=== PATIENT | female | born 1960 | race Caucasian/White ===

== ENCOUNTER 2017-08-12 10:58 | Emergency (ER) | payer MEDICARE, MEDICAID ==
[2017-08-12] MEDS ORDERED: IPRATROPIUM/ALBUTEROL (0.5MG/3MG) NEB INH ONE (11:25)
--- NOTE | 2017-08-12 11:30 | Emergency Department Record ---
History of Present Illness - General Chief Complaint: Cough Stated Complaint: COLD FOR OVER A WEEK Time Seen by Provider: 08/12/17 11:21 Source: Patient Mode of Arrival: EMS Limitations: No limitations - History of Present Illness Initial Comments: The patient is here due to a cough and congestion for just over a week. She denies any SOB or CLAUDIA but has had a mild hoarse voice. There also has been no reported fever, chills, vomiting or diarrhea but she has had an issue with her chronic pain. MD Complaint: Cough, Nasal congestion, Rhinorrhea Onset/Timin -: Week(s) Severity: Moderate Severity scale (1-10): 7 Consistency: Constant Associated Symptoms: Hoarseness - Related Data Home Medications Medication Instructions Recorded Confirmed Last Taken Pravastatin Sodium [Pravachol] 80 mg PO DAILY 08/12/17 08/12/17 Unknown Previous Rx's Medication Instructions Recorded Hydrocodone/Acetaminophen [Randall 1 tab PO BID PRN #56 tab 05/09/15 7.5mg/325mg] Albuterol Sulfate [Proair Hfa] 2 puff IH QID PRN #1 inhaler 08/12/17 Azithromycin [Zithromax] 250 mg PO DAILY #4 tab 08/12/17 Benzonatate [Tessalon] 1 cap PO Q8H PRN #15 cap 08/12/17 Allergies Allergy/AdvReac Type Severity Reaction Status Date / Time No Known Drug Allergies Allergy Verified 05/17/15 18:14 Travel Screening - Travel/Exposure Within Last 30 Days Have you traveled within the last 30 days?: No Review of Systems Constitutional: Reports: Malaise. Denies: Chills, Fever Eyes: Denies: Eye discharge ENT: Reports: Congestion Respiratory: Reports: Cough. Denies: Dyspnea, Hemoptysis Cardiovascular: Denies: Arrhythmia, Chest pain Past Medical History - SOCIAL HISTORY Smoking Status: Never smoker Alcohol Use: None Drug Use: None - RESPIRATORY Hx Respiratory Disorders: No - CARDIOVASCULAR Hx Cardio Disorders: No - NEURO Hx Neuro Disorders: Yes Hx Seizures: Yes (as a child) - GI Hx GI Disorders: No - Hx Genitourinary Disorders: No Comment:: inc of urine at times - ENDOCRINE Hx Endocrine Disorders: Yes Hx Diabetes: Yes (states she doesn't think she is) Hx Thyroid Disease: Yes Comment:: states she isn't sure but is on medication for both - MUSCULOSKELETAL Hx Musculoskeletal Disorders: Yes Hx Arthritis: Yes - PSYCH Hx Psych Problems: No - HEMATOLOGY/ONCOLOGY Hx Hematology/Oncology Disorders: Yes Hx Blood Transfusions: Yes Hx Blood Transfusion Reaction: No Family Medical History Any Significant Family History?: Yes Hx Heart Disease: Father, Mother Physical Exam - General General Appearance: Alert, Oriented x3, Cooperative, No acute distress - Head Head exam: Atraumatic, Normocephalic, Normal inspection - Eye Eye exam: Normal appearance, PERRL - Neck Neck exam: Normal inspection, Full ROM. negative: Tenderness - Respiratory Respiratory exam: Normal lung sounds bilaterally. negative: Accessory muscle use, Rales, Respiratory distress, Rhonchi, Stridor, Wheezes - Cardiovascular Cardiovascular Exam: Regular rate, Normal rhythm, Normal heart sounds - GI/Abdominal GI/Abdominal exam: Soft, Normal bowel sounds. negative: Tenderness - Extremities Extremities exam: Normal capillary refill. negative: Joint swelling, Pedal edema, Tenderness - Neurological Neurological exam: Alert, Oriented X3. negative: Altered, Motor sensory deficit Course Vital Signs 08/12/17 11:13 Temperature 97.7 F Pulse Rate 86 Respiratory 16 Rate Blood Pressure 153/94 Pulse Ox 98 - Reevaluation(s) Reevaluation #1: The patient is doing better. She is coughing less since the breathing treatment. I did explain to her that the lab tests are WNL's. She is to continue the oral Abx at home along with the breathing tx and is to see her PCP later this week if not better. 08/12/17 12:32 Medical Decision Making - Data Complexity MDM Data: Labs Ordered and/or Reviewed, X-Ray Ordered and/or Reviewed - Lab Data Result diagrams: 08/12/17 11:35 08/12/17 11:35 - Radiology Data Radiology results: Report reviewed (CXR: Neg.) Disposition Disposition: Discharge Clinical Impression: Upper respiratory infection Qualifiers: URI type: unspecified URI Qualified Code(s): J06.9 - Acute upper respiratory infection, unspecified Disposition: Home, Self-Care Condition: (1) Good Instructions: Upper Respiratory Infection (ED) Additional Instructions: Please continue the Zithromax and use the inhaller and Tessalon as directed. Please see your PCP for recheck in 2-3 days if not better. Return to the ER for any worsening cough, fever, chills, or trouble breathing. Prescriptions: Albuterol Sulfate [Proair Hfa] 2 puff IH QID PRN #1 inhaler PRN Reason: Cough And Difficulty Breathing Azithromycin [Zithromax] 250 mg PO DAILY #4 tab Benzonatate [Tessalon] 1 cap PO Q8H PRN #15 cap PRN Reason: Cough Forms: Patient Portal Access Time of Disposition: 12:35 Quality - Quality Measures Quality Measures: N/A - Blood Pressure Screening View Details: Yes Does Patient Have Any of the Following: No Blood Pressure Classification: Pre-Hypertensive BP Reading Systolic Measurement: 150 Diastolic Measurement: 83 Screening for High Blood Pressure: < Pre-Hypertensive BP, F/U Documented > [ G8950] Pre-Hypertensive Follow-up Interventions: Referral to alternative/primary care provider.
[2017-08-12 11:40] LABS: BASO % 0.4 % (0-6); EOS % 8.6 % (0-6); GRAN % 46.1 % (47-80); HEMOGLOBIN 14.5 gm/dl (11.6-16.0); LYMPH % 35.2 % (16-45); MEAN CELL VOLUME 89.6 fl (81-97); MEAN CORPUSCULAR HEMOGLOBIN 29.5 pg (27-33); MEAN PLATELET VOLUME 8.9 fl (7.4-10.4); MONO % 9.7 % (0-9); PLATELET COUNT 194 K/uL (130-400); RED BLOOD COUNT 4.91 M/uL (3.80-5.40); RED CELL DISTRIBUTION WIDTH 13.2 % (11.5-14.5); WHITE BLOOD COUNT W/O DIFF 4.8 K/uL (4.2-12.2)
[2017-08-12 12:02] LABS: ALB/GLOB RATIO 1.3 (1.1-1.8); ALBUMIN 3.6 g/dL (4.0-5.0); ALKALINE PHOSPHATASE 63 U/L (35-104); ALT/SGPT 19 U/L (<33); AST/SGOT 24 U/L (10.0-35.0); BLOOD UREA NITROGEN 9 mg/dL (6-20); C-REACTIVE PROTEIN 0.7 mg/L (<5.0); CREATININE 0.7 mg/dL (0.5-0.9); EST GLOMERULAR FILTRATION RATE > 60 mL/min; GLUCOSE,RANDOM 125 mg/dL (74-109); TOTAL PROTEIN 6.4 g/dL (6.6-8.7)
[2017-08-12] MEDS ORDERED: AZITHROMYCIN 500 MG TABLET PO ONE (12:30)
--- NOTE | 2017-08-14 10:27 | RADIOLOGY REPORT ---
EXAM: CHEST, TWO VIEWS HISTORY: COUGH, WEAKNESS. TECHNIQUE: AP and lateral views of the chest were obtained. Comparison: Two view chest dated 01/07/13. FINDINGS: Mild cardiomegaly. No definite acute infiltrate seen. This study is somewhat limited by large body habitus. No definite pleural effusion or pneumothorax evident. Surgical clips in the right supraclavicular region, also present previously. IMPRESSION: 1. MILD CARDIOMEGALY. 2. NO ACUTE INFILTRATE EVIDENT. 3. SURGICAL CLIPS RIGHT SUPRACLAVICULAR REGION. JOB NUMBER: [id number] [facility]
== END 2017-08-12 14:08 | disposition home or self-care (01) ==
LOC: ER 10:58
DX: J06.9 Acute upper respiratory infection, unspecified (principal); R05 Cough; R49.0 Dysphonia; R53.1 Weakness; E11.9 Type 2 diabetes mellitus without complications
CPT/HCPCS: 71020; 80053; 85025; 86140; 99283

== ENCOUNTER 2018-04-24 18:09 | Emergency (ER) | payer MEDICARE, MEDICAID ==
--- NOTE | 2018-04-24 18:45 | Emergency Department Record ---
History of Present Illness - General Chief Complaint: Choking Stated Complaint: CHOKING/FOOD Time Seen by Provider: 04/24/18 18:39 Source: Patient Mode of Arrival: EMS Limitations: No limitations - History of Present Illness Initial Comments: The patient is here due to getting food stuck in her esophagus. She was eating a pork chop and got a piece stuck in her esophagus. She then started coughing and vomiting and now feels like it is in the mid chest. She has had no voice changes or trouble with her speech. The patient does have a hx of an esophageal stricture and did need it dilated many years ago. She states for the last few months she has felt food getting stuck minimally. Onset/Timin -: Hour(s) - Related Data Home Medications Medication Instructions Recorded Confirmed Last Taken Furosemide [Lasix] 20 mg PO DAILY 04/24/18 04/24/18 04/24/18 Hydrocodone/Acetaminophen [Comfort 1 tab PO Q8H PRN 04/24/18 04/24/18 04/24/18 10mg/325mg] Allergies Allergy/AdvReac Type Severity Reaction Status Date / Time No Known Drug Allergies Allergy Verified 04/24/18 18:13 Travel Screening - Travel/Exposure Within Last 30 Days Have you traveled within the last 30 days?: No - Travel/Exposure Within Last Year Have you traveled outside the [place] in the last year?: No - Additonal Travel Details Have you been exposed to anyone with a communicable illness?: No Review of Systems Constitutional: Denies: Chills, Fever Past Medical History - SOCIAL HISTORY Smoking Status: Never smoker Alcohol Use: None Drug Use: None - RESPIRATORY Hx Respiratory Disorders: No - CARDIOVASCULAR Hx Cardio Disorders: No - NEURO Hx Neuro Disorders: Yes Hx Seizures: Yes (as a child) - GI Hx GI Disorders: No - Hx Genitourinary Disorders: No Comment:: inc of urine at times - ENDOCRINE Hx Endocrine Disorders: Yes Hx Diabetes: Yes (states she doesn't think she is) Hx Thyroid Disease: Yes Comment:: states she isn't sure but is on medication for both - MUSCULOSKELETAL Hx Musculoskeletal Disorders: Yes Hx Arthritis: Yes - PSYCH Hx Psych Problems: No - HEMATOLOGY/ONCOLOGY Hx Hematology/Oncology Disorders: Yes Hx Blood Transfusions: Yes Hx Blood Transfusion Reaction: No Family Medical History Any Significant Family History?: Yes Hx Heart Disease: Father, Mother Physical Exam - General General Appearance: Alert, Oriented x3, Cooperative, No acute distress - Head Head exam: Atraumatic, Normocephalic, Normal inspection - Eye Eye exam: Normal appearance, PERRL - ENT Throat exam: Normal inspection. negative: Tonsillar erythema, Tonsillar exudate - Neck Neck exam: Normal inspection, Full ROM. negative: Tenderness - Respiratory Respiratory exam: Normal lung sounds bilaterally. negative: Respiratory distress - Cardiovascular Cardiovascular Exam: Regular rate, Normal rhythm, Normal heart sounds - GI/Abdominal GI/Abdominal exam: Soft, Normal bowel sounds. negative: Tenderness - Extremities Extremities exam: Normal inspection, Full ROM, Normal capillary refill. negative: Tenderness Course Vital Signs 04/24/18 18:26 Pulse Rate [ 87 Pulse Ox Probe] Respiratory 17 Rate Blood Pressure 156/72 [Left Arm] Pulse Ox 98 - Reevaluation(s) Reevaluation #1: The patient is doing OK at this time. She continues to vomit intermittently but is having no SOB or CLAUDIA. I did explain to her that she will need and EGD but due to the fact we have no GI she will need to go to a larger hospital. She chose [facility] so I did discuss the case with Dr. Pickering in the ER and she does accept the patient in an ER to ER transfer. 04/24/18 19:49 Medical Decision Making - Data Complexity MDM Data: Labs Ordered and/or Reviewed, X-Ray Ordered and/or Reviewed - Lab Data Result diagrams: 04/24/18 19:15 04/24/18 19:15 - Radiology Data Radiology results: Report reviewed (CXR: poor inspiration, O/W neg.) Disposition Disposition: Transfer Clinical Impression: Esophageal foreign body Qualifiers: Encounter type: initial encounter Qualified Code(s): T18.108A - Unspecified foreign body in esophagus causing other injury, initial encounter Disposition: Acute Care Hospital Transfer Transfer To: [facility] Reason For Transfer: GI Accepting Physician: Ladan Time Discussed w/Accepting Physician: 19:52 Condition: (2) Stable Referrals: [facility] [Provider Group] Forms: Patient Portal Access Time of Disposition: 19:53 Quality - Quality Measures Quality Measures: N/A - Blood Pressure Screening View Details: Yes Does Patient Have Any of the Following: No Blood Pressure Classification: Hypertensive Reading Systolic Measurement: 175 Diastolic Measurement: 102 Screening for High Blood Pressure: < First Hypertensive BP, F/U Documented > [ G8950] First Hypertensive Follow-up Interventions: Referral to alternative/primary care provider.
[2018-04-24] MEDS ORDERED: ONDANSETRON HCL IV 4 MG/2 ML VIAL IVP ONE (18:49)
[2018-04-24 19:22] LABS: BASO % 0.3 % (0-6); EOS % 6.3 % (0-6); GRAN % 57.3 % (47-80); HEMATOCRIT 47.2 % (35.0-47.0); HEMOGLOBIN 15.8 gm/dl (11.6-16.0); LYMPH % 26.2 % (16-45); MEAN CELL VOLUME 91.5 fl (81-97); MEAN CORPUSCULAR HEMOGLOBIN 30.6 pg (27-33); MEAN CORPUSCULAR HGB CONC 33.5 g/dl (32-36); MEAN PLATELET VOLUME 9.5 fl (7.4-10.4); MONO % 9.9 % (0-9); PLATELET COUNT 233 K/uL (130-400); RED BLOOD COUNT 5.16 M/uL (3.80-5.40); RED CELL DISTRIBUTION WIDTH 13.6 % (11.5-14.5); WHITE BLOOD COUNT W/O DIFF 6.5 K/uL (4.2-12.2)
[2018-04-24 19:34] LABS: BLOOD UREA NITROGEN 15 mg/dL (8-23); CREATININE 0.8 mg/dL (0.5-0.9); EST GLOMERULAR FILTRATION RATE > 60 mL/min
[2018-04-24 19:37] LABS: GLUCOSE,RANDOM 130 mg/dL (74-109)
--- NOTE | 2018-04-25 22:02 | RADIOLOGY REPORT ---
EXAM: CHEST 2 VIEWS HISTORY: FOREIGN BODY. TECHNIQUE: Frontal and lateral views of the chest were preformed. FINDINGS: Heart size is normal. There is bronchial wall thickening. No infiltrate or pleural effusion. No radiopaque foreign body. IMPRESSION: BRONCHIAL WALL THICKENING. NO INFILTRATE OR PLEURAL EFFUSION. NO RADIOPAQUE FOREIGN BODY. JOB NUMBER: [id number] [facility]
== END 2018-04-24 20:15 | disposition short-term general hospital (02) ==
LOC: ER 18:09
DX: T18.128A Food in esophagus causing other injury, initial encounter (principal); R05 Cough; R11.11 Vomiting without nausea
CPT/HCPCS: 99285 ×2; 96374; 85025; 80048; 71046; J2405

== ENCOUNTER → 2018-05-14 | Day surgery (SDC) | payer MEDICARE, MEDICAID | END | disposition home or self-care (01) | LOC: HOP 13:22 | PROVIDERS: ATTEND Internal Medicine Gastroenterology | DX: Z53.9 Procedure and treatment not carried out, unspecified reason (principal) ==

== ENCOUNTER 2019-02-27 16:32 | Emergency (ER) | payer MEDICARE, MEDICAID ==
[2019-02-27] MEDS ORDERED: CLINDAMYCIN 150 MG CAP PO ONE (16:50)
--- NOTE | 2019-02-27 17:03 | Emergency Department Record ---
History of Present Illness - General Chief complaint: Bite Insect/other Stated complaint: SPIDER BITES Time Seen by Provider: 02/27/19 16:49 Source: Patient, Family Mode of Arrival: EMS Limitations: No limitations - History of Present Illness Initial comments: The patient is here due to a skin rash off and on for 2-3 months. She has had sores on her skin mainly over her abdomen off and on for months. They seem to be small circular infections and come to a head and then heal with mild scarring. She does have on to the R side of the abdomen that now has opened and is a very superficial wound. She also found a new one last night to the L side of the abdomen. The patient denies any fever, chills, CP, SOB, or CLAUDIA but she has had a mild cough. Additionally the patient howard have some red dry skin to her R lateral arm that is mildly itchy. She denies any new medicines or foods. MD complaint: Rash Onset/Timin -: Month(s) Hx Tetanus Toxoid Vaccination: Yes Year of Tetanus Vaccination: unsure Severity: Moderate Consistency: Constant Improves with: None Worsens with: None Context: Other Associated symptoms: Denies other symptoms Treatments Prior to Arrival: OTC topical medication - Related Data Previous Rx's Medication Instructions Recorded Clindamycin HCl [Cleocin HCl] 300 mg PO QID #28 capsule 02/27/19 Mupirocin [Bactroban] 1 apply TP BID #22 gm 02/27/19 Allergies Allergy/AdvReac Type Severity Reaction Status Date / Time fluconazole AdvReac VOMITING Verified 02/27/19 16:44 Travel Screening - Travel/Exposure Within Last 30 Days Have you traveled within the last 30 days?: No - Travel/Exposure Within Last Year Have you traveled outside the [place] in the last year?: No - Additonal Travel Details Have you been exposed to anyone with a communicable illness?: No - Travel Symptoms Symptom Screening: None Review of Systems Constitutional: Denies: Chills, Fever Eyes: Denies: Eye discharge ENT: Reports: Congestion Respiratory: Reports: Cough. Denies: Dyspnea Cardiovascular: Denies: Arrhythmia, Chest pain Endocrine: Reports: Fatigue Gastrointestinal: Denies: Nausea Genitourinary: Denies: Dysuria Musculoskeletal: Denies: Arthralgia Skin: Reports: Rash. Denies: Bruising Past Medical History - SOCIAL HISTORY Smoking Status: Never smoker Alcohol Use: None Drug Use: None - RESPIRATORY Hx Respiratory Disorders: No Comment:: denies any airway problems - CARDIOVASCULAR Hx Cardio Disorders: Yes Hx Deep Vein Thrombosis: Yes (had blood clot following hip surgery, blood clot to knee) Comment:: has an enlarged heart, no problems - NEURO Hx Neuro Disorders: Yes Hx Dizziness: Yes (occassionally) Hx Neuropathy: Yes (occassionally) Hx Seizures: Yes (as a child x1, no problems since) - GI Hx GI Disorders: Yes Hx Hiatal Hernia: Yes Hx Wt Loss/Wt Gain: Yes (58 lbs in 10 months) Comment:: dyspahgia/stricture, 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 - Hx Genitourinary Disorders: No Comment:: inc of urine at times - ENDOCRINE Hx Endocrine Disorders: Yes Hx Diabetes: Yes (on rx) Hx Thyroid Disease: Yes Comment:: states she isn't sure but is on medication for both - MUSCULOSKELETAL Hx Musculoskeletal Disorders: Yes Hx Arthritis: Yes (hands) Comment:: carpal tunnel bilateral - PSYCH Hx Psych Problems: No - HEMATOLOGY/ONCOLOGY Hx Hematology/Oncology Disorders: Yes Hx Blood Transfusions: No (denies) Family Medical History Any Significant Family History?: Yes Hx Cancer: Brother/Sister *Cancer Comment: sister-"urinary cancer" Hx Diabetes: Mother Hx Heart Disease: Father, Mother Hx HTN: Mother, Brother/Sister *HTN Comment: sister Hx Resp Disorders: Father, Grandparents Physical Exam - General General Appearance: Alert, Oriented x3, Cooperative, No acute distress - Head Head exam: Atraumatic, Normocephalic - Eye Eye exam: Normal appearance, PERRL - ENT Throat exam: Normal inspection. negative: Tonsillar erythema, Tonsillar exudate - Neck Neck exam: Normal inspection, Full ROM. negative: Tenderness - Respiratory Respiratory exam: Normal lung sounds bilaterally. negative: Respiratory distress - Cardiovascular Cardiovascular Exam: Regular rate, Normal rhythm, Normal heart sounds - GI/Abdominal GI/Abdominal exam: Soft, Normal bowel sounds, Other (morbidly obese.). negative : Tenderness - Extremities Extremities exam: Full ROM, Normal capillary refill. negative: Normal inspection (There is mild dry scaley skin to the R lateral arm. It is not warm or tender.), Tenderness - Neurological Neurological exam: Alert. negative: Motor sensory deficit - Skin Skin exam: Rash (There is a 2x2 cm area of erythema to the R lateral anterior abdomen with a 8x8 mm area of superficial purulence in the center. There is no fluctance or abscess.), Other (There is a very indurated 1.5x1.5 cm area of erythema and tenderness to the L anterior lateral abdomen. It appears to be an early skin furuncle. ) Course Vital Signs 02/27/19 16:44 Temperature 98.5 F Pulse Rate 94 H Respiratory 20 Rate Blood Pressure 175/115 Pulse Ox 98 - Reevaluation(s) Reevaluation #1: The patient is doing well at this time. She denies any new problems or issues. I did discus the normal lab work with the patient and the need for F/U next week with her PCP. She is to continue the Clindamycin and may use Mupirocin ointment on the open wounds until healed. 02/27/19 17:34 Medical Decision Making - Data Complexity MDM Data: Labs Ordered and/or Reviewed - Lab Data Result diagrams: 02/27/19 17:04 02/27/19 17:04 Disposition Disposition: Discharge Clinical Impression: Skin infection Disposition: Home, Self-Care Condition: (2) Stable Instructions: Acute Wound Care (ED) Additional Instructions: Please clean the open wounds daily and dress with the antibiotic ointment as directed and continue the Clindamycin. Please see your family doctor this week for recheck. Return to the ER for any worsening symptoms. Prescriptions: Clindamycin HCl [Cleocin HCl] 300 mg PO QID #28 capsule Mupirocin [Bactroban] 1 apply TP BID #22 gm Forms: Patient Portal Access Time of Disposition: 17:37 Quality - Quality Measures Quality Measures: N/A - Blood Pressure Screening View Details: Yes Does Patient Have Any of the Following: No Blood Pressure Classification: Hypertensive Reading Systolic Measurement: 175 Diastolic Measurement: 115 Screening for High Blood Pressure: < First Hypertensive BP, F/U Documented > [ G8950] First Hypertensive Follow-up Interventions: Referral to alternative/primary care provider.
[2019-02-27 17:12] LABS: BASO % 0.3 % (0-6); EOS % 5.8 % (0-6); GRAN % 55.4 % (47-80); HEMATOCRIT 48.5 % (35.0-47.0); HEMOGLOBIN 15.8 gm/dl (11.6-16.0); LYMPH % 28.3 % (16-45); MEAN CELL VOLUME 90.5 fl (81-97); MEAN CORPUSCULAR HEMOGLOBIN 29.5 pg (27-33); MEAN CORPUSCULAR HGB CONC 32.6 g/dl (32-36); MEAN PLATELET VOLUME 9.2 fl (7.4-10.4); MONO % 10.2 % (0-9); PLATELET COUNT 234 K/uL (130-400); RED BLOOD COUNT 5.36 M/uL (3.80-5.40); RED CELL DISTRIBUTION WIDTH 13.5 % (11.5-14.5); WHITE BLOOD COUNT W/O DIFF 5.9 K/uL (4.2-12.2)
[2019-02-27 17:25] LABS: BLOOD UREA NITROGEN 12 mg/dL (8-23); CREATININE 0.7 mg/dL (0.5-0.9); EST GLOMERULAR FILTRATION RATE > 60 mL/min
[2019-02-27 17:28] LABS: GLUCOSE,RANDOM 112 mg/dL (74-109)
== END 2019-02-27 18:13 | disposition home or self-care (01) ==
LOC: ER 16:32
DX: L02.221 Furuncle of abdominal wall (principal); R05 Cough; E11.9 Type 2 diabetes mellitus without complications; Z79.84 Long term (current) use of oral hypoglycemic drugs
CPT/HCPCS: 80048; 85025; 99283

== ENCOUNTER 2019-03-06 23:07 | Emergency (ER) | payer MEDICARE, MEDICAID ==
--- NOTE | 2019-03-06 23:56 | Emergency Department Record ---
History of Present Illness - General Chief complaint: Abscess Stated complaint: SORES ON HER LEGS Time Seen by Provider: 03/06/19 23:09 Source: Patient, Family Mode of Arrival: EMS Limitations: No limitations - History of Present Illness Initial comments: The patient is here due to a hx of skin rashes and bed sores. 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 She also is morbidly obese and non ambulatory and either lays in a bed or sits in a wheelchair. The patient was here a week ago due to superficial skin wounds to her abdomen and a R arm pruritic rash. She was prescribed topical mupirocin ointment for the superficial wounds along with oral Clindamycin. Now most of the wounds are improving and her R arm rash is almost gone. She does have a new itchy rash to the anterior R lower leg. There is no hx of fever, chills, CP, SOB, or vomiting. MD complaint: Rash Onset/Timin -: Week(s) Hx Tetanus Toxoid Vaccination: Yes Year of Tetanus Vaccination: unsure Associated symptoms: Malaise, Nausea Treatments Prior to Arrival: OTC topical medication - Related Data Previous Rx's Medication Instructions Recorded Clindamycin HCl [Cleocin HCl] 300 mg PO QID #28 capsule 02/27/19 Mupirocin [Bactroban] 1 apply TP BID #22 gm 02/27/19 Cephalexin [Keflex] 500 mg PO TID #21 cap 03/07/19 Mupirocin [Bactroban] 1 apply TP TID #1 tube 03/07/19 Triamcinolone Acetonide 80 gm TP BID #1 cream..g. 03/07/19 Allergies Allergy/AdvReac Type Severity Reaction Status Date / Time fluconazole AdvReac VOMITING Verified 03/06/19 23:19 Travel Screening - Travel/Exposure Within Last 30 Days Have you traveled within the last 30 days?: No - Travel/Exposure Within Last Year Have you traveled outside the [place] in the last year?: No - Additonal Travel Details Have you been exposed to anyone with a communicable illness?: No - Travel Symptoms Symptom Screening: None Review of Systems Constitutional: Reports: Malaise. Denies: Chills, Fever Eyes: Denies: Eye discharge ENT: Denies: Congestion Respiratory: Denies: Cough, Dyspnea Past Medical History - SOCIAL HISTORY Smoking Status: Never smoker Alcohol Use: None Drug Use: None - RESPIRATORY Hx Respiratory Disorders: No Comment:: denies any airway problems - CARDIOVASCULAR Hx Cardio Disorders: Yes Hx Deep Vein Thrombosis: Yes (had blood clot following hip surgery, blood clot to knee) Comment:: has an enlarged heart, no problems - NEURO Hx Neuro Disorders: Yes Hx Dizziness: Yes (occassionally) Hx Neuropathy: Yes (occassionally) Hx Seizures: Yes (as a child x1, no problems since) - GI Hx GI Disorders: Yes Hx Hiatal Hernia: Yes Hx Wt Loss/Wt Gain: Yes (58 lbs in 10 months) Comment:: dyspahgia/stricture, 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 - Hx Genitourinary Disorders: No Comment:: inc of urine at times - ENDOCRINE Hx Endocrine Disorders: Yes Hx Diabetes: Yes (on rx) Hx Thyroid Disease: Yes Comment:: states she isn't sure but is on medication for both - MUSCULOSKELETAL Hx Musculoskeletal Disorders: Yes Hx Arthritis: Yes (hands) Comment:: carpal tunnel bilateral - PSYCH Hx Psych Problems: No - HEMATOLOGY/ONCOLOGY Hx Hematology/Oncology Disorders: Yes Hx Blood Transfusions: No (denies) Family Medical History Any Significant Family History?: Yes Hx Cancer: Brother/Sister *Cancer Comment: sister-"urinary cancer" Hx Diabetes: Mother Hx Heart Disease: Father, Mother Hx HTN: Mother, Brother/Sister *HTN Comment: sister Hx Resp Disorders: Father, Grandparents Physical Exam - General General Appearance: Alert, Oriented x3, Cooperative, No acute distress - Head Head exam: Atraumatic, Normocephalic, Normal inspection - Eye Eye exam: Normal appearance, PERRL - Neck Neck exam: Normal inspection, Full ROM. negative: Tenderness - Respiratory Respiratory exam: Normal lung sounds bilaterally. negative: Respiratory distress - Cardiovascular Cardiovascular Exam: Regular rate, Normal rhythm, Normal heart sounds - GI/Abdominal GI/Abdominal exam: Soft, Normal bowel sounds. negative: Rebound, Rigid, Tenderness - Extremities Extremities exam: Normal capillary refill, Tenderness. negative: Normal inspection (There is a papular erythematous moderately pruritic rash to the R anterior lower leg. It does not appear cellulitic but appears to be a type of contact dermatitis.) - Neurological Neurological exam: Alert. negative: Motor sensory deficit Course Vital Signs 03/06/19 03/06/19 23:15 23:29 Temperature 98.2 F 98.2 F Pulse Rate 104 H Pulse Rate [ 105 H Left] Respiratory 16 16 Rate Blood Pressure 133/108 Blood Pressure 133/108 [Left Arm] Pulse Ox 99 99 - Reevaluation(s) Reevaluation #1: I did discuss the need to take Keflex and continue the Mupirocin cream. She is to use Triamcinalone cream on her lower legs and is to see her PCP next week for recheck. 03/07/19 00:58 Reevaluation #2: I also did discuss the patient's bed sores on her buttocks and recommended that she rotate and stay off of her buttocks as much as possible. 03/07/19 01:00 Medical Decision Making - Lab Data Result diagrams: 03/06/19 00:15 03/06/19 00:15 Disposition Disposition: Discharge Clinical Impression: Skin infection Disposition: Home, Self-Care Condition: (2) Stable Instructions: Acute Wounds (ED) Additional Instructions: Please take the Keflex and Mupirocin as directed and use the Steroid cream on your lower legs. Please see your doctor for recheck this week and return to the ER for any worsening symptoms. Prescriptions: Cephalexin [Keflex] 500 mg PO TID #21 cap Mupirocin [Bactroban] 1 apply TP TID #1 tube Triamcinolone Acetonide 80 gm TP BID #1 cream..g. Forms: Patient Portal Access Time of Disposition: 01:05 Quality - Quality Measures Quality Measures: N/A - Blood Pressure Screening View Details: Yes Does Patient Have Any of the Following: Active Dx of HTN Blood Pressure Classification: Hypertensive Reading Systolic Measurement: 133 Diastolic Measurement: 108 Screening for High Blood Pressure: Patient Exclusion, Hx of HTN [G9744]
[2019-03-07 00:17] LABS: BASO % 0.3 % (0-6); EOS % 5.6 % (0-6); GRAN % 52.8 % (47-80); HEMATOCRIT 46.1 % (35.0-47.0); HEMOGLOBIN 15.4 gm/dl (11.6-16.0); LYMPH % 32.3 % (16-45); MEAN CELL VOLUME 88.8 fl (81-97); MEAN CORPUSCULAR HEMOGLOBIN 29.7 pg (27-33); MEAN CORPUSCULAR HGB CONC 33.4 g/dl (32-36); MEAN PLATELET VOLUME 9.5 fl (7.4-10.4); PLATELET COUNT 186 K/uL (130-400); RED BLOOD COUNT 5.19 M/uL (3.80-5.40); RED CELL DISTRIBUTION WIDTH 13.5 % (11.5-14.5); WHITE BLOOD COUNT W/O DIFF 6.2 K/uL (4.2-12.2)
[2019-03-07 00:49] LABS: BLOOD UREA NITROGEN 13 mg/dL (8-23); CREATININE 0.7 mg/dL (0.5-0.9); EST GLOMERULAR FILTRATION RATE > 60 mL/min
[2019-03-07 00:52] LABS: GLUCOSE,RANDOM 133 mg/dL (74-109)
[2019-03-07] MEDS ORDERED: CEPHALEXIN 500 MG CAPSULE PO STA (00:58)
== END 2019-03-07 02:46 | disposition home or self-care (01) ==
LOC: ER 23:07
DX: L25.9 Unspecified contact dermatitis, unspecified cause (principal); L89.329 Pressure ulcer of left buttock, unspecified stage; L89.319 Pressure ulcer of right buttock, unspecified stage; R11.0 Nausea; R53.81 Other malaise; E11.9 Type 2 diabetes mellitus without complications; I10 Essential (primary) hypertension; Z79.84 Long term (current) use of oral hypoglycemic drugs
CPT/HCPCS: 80048; 84145; 85025; 99283

== ENCOUNTER 2019-08-30 10:19 | Emergency (ER) | payer MEDICARE, MEDICAID ==
--- NOTE | 2019-08-30 10:33 | Emergency Department Record ---
History of Present Illness - General Chief Complaint: Fall Injury Stated Complaint: FALL Time Seen by Provider: 08/30/19 10:24 Source: Patient, EMS Mode of Arrival: EMS Limitations: No limitations - History of Present Illness Initial Comments: 59 yo female presents after a fall last night out of her bed. The fall occurred at 10pm. She is wheelchair bound and non ambulatory. Her morning home health aide found her at 9:30am. She does not have any pain. She does not think she injured herself. Her head bumped the hand rail of the bed on the way down but no significant injury. No swelling, pain, headache or tenderness. No neck pain. She is at her baseline without any complaints. EMS was called to her home to help her back in bed. She requested to be checked out. She has home health aides three times a day. She has visiting physicians once a month. She and her brother do have some questions regarding other resources for her home care. She denies any changes in her health. No vomiting, diarrhea, no changes in appetite. No fevers, chills, sores, rashes that are new. Visiting Physicians sees her once a month. She states she has regular primary care. Complaint: Fall -: Hour(s) Fall From: Out of bed When Fall Occurred: Other (12 hours ago) Fall Witnessed: No Place Fall Occurred: Home Loss of Consciousness: None Prolonged Down Time?: Yes Symptoms Prior to Fall: None Location: Other (No complaints of injury) Severity: Mild Quality: Other Context: Other (Wheel chair au with obesity) - Justine Coma Scale Eye Response: (4) Open spontaneously Motor Response: (6) Obeys commands Verbal Response: (5) Oriented Justine Total: 15 - Related Data Previous Rx's Medication Instructions Recorded Mupirocin [Bactroban] 1 apply TP BID #22 gm 02/27/19 Mupirocin [Bactroban] 1 apply TP TID #1 tube 03/07/19 Triamcinolone Acetonide 80 gm TP BID #1 cream..g. 03/07/19 Allergies Allergy/AdvReac Type Severity Reaction Status Date / Time fluconazole AdvReac VOMITING Verified 03/06/19 23:19 Review of Systems Constitutional: Denies: Chills, Fever, Malaise, Weakness Eyes: Denies: Eye discharge ENT: Denies: Congestion, Throat pain Respiratory: Denies: Cough, Dyspnea Cardiovascular: Denies: Chest pain, Edema, Palpitations, Syncope Endocrine: Denies: Fatigue, Polydipsia, Polyuria Gastrointestinal: Denies: Abdominal pain, Diarrhea, Nausea, Vomiting Genitourinary: Denies: Dysuria, Urgency Musculoskeletal: Denies: Arthralgia, Back pain, Joint swelling, Myalgia Skin: Denies: Bruising, Change in color, Rash Neurological: Reports: Abnormal gait (chronic). Denies: Confusion, Headache, Numbness, Vertigo, Weakness Psychiatric: Denies: Anxiety Hematological/Lymphatic: Denies: Easy bleeding, Easy bruising Past Medical History - SOCIAL HISTORY Smoking Status: Never smoker Drug Use: None - RESPIRATORY Hx Respiratory Disorders: No Comment:: denies any airway problems - CARDIOVASCULAR Hx Cardio Disorders: Yes Hx Deep Vein Thrombosis: Yes (had blood clot following hip surgery, blood clot to knee) Comment:: has an enlarged heart, no problems - NEURO Hx Neuro Disorders: Yes Hx Dizziness: Yes (occassionally) Hx Neuropathy: Yes (occassionally) Hx Seizures: Yes (as a child x1, no problems since) - GI Hx GI Disorders: Yes Hx Hiatal Hernia: Yes Hx Wt Loss/Wt Gain: Yes (58 lbs in 10 months) Comment:: dyspahgia/stricture, 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 - Hx Genitourinary Disorders: No Comment:: inc of urine at times - ENDOCRINE Hx Endocrine Disorders: Yes Hx Diabetes: Yes (on rx) Hx Thyroid Disease: Yes Comment:: states she isn't sure but is on medication for both - MUSCULOSKELETAL Hx Musculoskeletal Disorders: Yes Hx Arthritis: Yes (hands) Comment:: carpal tunnel bilateral - PSYCH Hx Psych Problems: No - HEMATOLOGY/ONCOLOGY Hx Hematology/Oncology Disorders: Yes Hx Blood Transfusions: No (denies) Family Medical History Hx Cancer: Brother/Sister *Cancer Comment: sister-"urinary cancer" Hx Diabetes: Mother Hx Heart Disease: Father, Mother Hx HTN: Mother, Brother/Sister *HTN Comment: sister Hx Resp Disorders: Father, Grandparents Physical Exam - General General Appearance: Alert, Oriented x3, Cooperative, No acute distress, Other (Alert, conversational, no distress) Limitations: No limitations - Head Head exam: Atraumatic, Normocephalic, Normal inspection Head exam detail: negative: Abrasion, Contusion, Santos's sign, CSF otorrhea, CSF rhinorrhea, General tenderness, Hematoma, Laceration - Eye Eye exam: Normal appearance, PERRL, EOMI. negative: Conjunctival injection, Periorbital swelling, Periorbital tenderness, Scleral icterus - ENT ENT exam: Normal exam, Mucous membranes moist, Normal orophraynx, TM's normal bilaterally. negative: Mucous membranes dry Ear exam: Normal external inspection Nasal Exam: Normal inspection Mouth exam: Normal external inspection Teeth exam: Normal inspection Throat exam: Normal inspection - Neck Neck exam: Normal inspection, Full ROM. negative: Tenderness - Respiratory Respiratory exam: Normal lung sounds bilaterally. negative: Accessory muscle use, Chest wall tenderness, Decreased breath sounds, Prolonged expiratory, Respiratory distress, Rhonchi, Stridor, Wheezes - Cardiovascular Cardiovascular Exam: Regular rate, Normal rhythm, Normal heart sounds Peripheral Pulses: 2+: Radial (R), Radial (L) - GI/Abdominal GI/Abdominal exam: Soft. negative: Tenderness - Rectal Rectal exam: Deferred - exam: Deferred - Extremities Extremities exam: Other. negative: Calf tenderness, Joint swelling, Pedal edema, Tenderness - Back Back exam: Reports: Full ROM. Denies: CVA tenderness (R), CVA tenderness (L), Muscle spasm, Paraspinal tenderness, Rash noted, Tenderness, Vertebral tenderness - Neurological Neurological exam: Alert, Oriented X3. negative: Abnormal gait - Psychiatric Psychiatric exam: Normal affect, Normal mood - Skin Skin exam: Dry, Intact, Normal color, Warm Course - Reevaluation(s) Reevaluation #1: EMS discussed the case on arrival. No complaints of pain or injury. She stated she wanted to be check over and discuss home care situation 08/30/19 10:40 The patient has no complaints at this time No pain. No LOC. No headaches overnight. No neck pain. Her examination is unremarkable except for her morbid obesity She and her brother requests to speak to medical social worker about questions regarding her home care No signs of acute medical emergency or injury 08/30/19 11:21 Social Work completed her evaluation and provided the patient and brother with additional information for resources. The patient has a caregiver in the ED. She feels safe at home currently. We discussed home care, close follow up and reasons to return to the ED. 08/30/19 11:28 Prior to DC I again discussed with the patient any concerns. She states she feels normal at her baseline. No new pain or symptoms. She states she feels "normal". I encouraged her to return or have her visiting physician see her if she develops any concerns or symptoms. She, her brother, and vision care associate present agree with DC at this time. Disposition Disposition: Discharge Clinical Impression: Fall Qualifiers: Encounter type: initial encounter Qualified Code(s): W19.XXXA - Unspecified fall, initial encounter Disposition: Home, Self-Care Condition: (1) Good Instructions: Fall Prevention (ED) Additional Instructions: Call the resources provided today Call your doctor for a recheck of any outpatient concerns Return to the ED if you have any symptoms, pain, safety concerns Forms: Patient Portal Access Time of Disposition: 11:24 Quality - Quality Measures Quality Measures: N/A - Blood Pressure Screening Does Patient Have Any of the Following: No Blood Pressure Classification: Normal BP Reading Systolic Measurement: 119 Diastolic Measurement: 69 Screening for High Blood Pressure: < Normal BP, F/U Not Required > [G8783]
== END 2019-08-30 11:56 | disposition home or self-care (01) ==
LOC: ER 10:19
DX: Z04.3 Encounter for examination and observation following other accident (principal); W06.XXXA Fall from bed, initial encounter; Y92.003 Bedroom of unspecified non-institutional (private) residence as the place of occurrence of the external cause; E11.9 Type 2 diabetes mellitus without complications; Z79.84 Long term (current) use of oral hypoglycemic drugs
CPT/HCPCS: 99283

== ENCOUNTER 2019-11-06 22:15 | Emergency (ER) | payer MEDICARE, MEDICAID ==
--- NOTE | 2019-11-06 22:30 | Emergency Department Record ---
History of Present Illness - General Chief Complaint: Altered Mental Status Stated Complaint: HIGH BLOOD SUGAR Time Seen by Provider: 11/06/19 22:21 Source: Patient, EMS Mode of Arrival: EMS Limitations: Altered mental status - History of Present Illness Initial Comments: 59 yo female presents to ED for confusion symptoms this evening associated with a "startle" response when touched by her caregiver. Caregiver reports that the patient did exhibit similar symptoms previously when she had taken too many of her [place] and Flexeril symptoms. Caregiver reports that her PCP is planning on switching her to a pain patch, and therefore she suspects the patient may have taken more than her recommended number of pain pills. Patient was also started on Bactrim yesterday for a UTI, caregiver denies fevers, chills, or recent illness symptoms. Patient's accucheck for EMS was 129 as well. MD Complaint: Altered mental status Onset/Timin -: Days(s) Severity: Moderate Consistency: Constant Context: History of similar presentation Associated Symptoms: Denies other symptoms - [place] Coma Scale Eye Response: (4) Open spontaneously Motor Response: (6) Obeys commands Verbal Response: (4) Confused conversation Justine Total: 14 - Related Data Home Medications Medication Instructions Recorded Confirmed Last Taken Sulfamethoxazole/Trimethoprim 1 each PO BID 11/06/19 11/06/19 11/06/19 [Bactrim Ds Tablet] Previous Rx's Medication Instructions Recorded Mupirocin [Bactroban] 1 apply TP BID #22 gm 02/27/19 Mupirocin [Bactroban] 1 apply TP TID #1 tube 03/07/19 Triamcinolone Acetonide 80 gm TP BID #1 cream..g. 03/07/19 Allergies Allergy/AdvReac Type Severity Reaction Status Date / Time fluconazole AdvReac VOMITING Verified 11/06/19 22:21 Review of Systems Constitutional: Denies: Chills, Fever, Malaise, Night sweats Eyes: Denies: Eye discharge, Eye pain ENT: Denies: Congestion, Ear pain, Epistaxis Respiratory: Denies: Cough, Dyspnea Cardiovascular: Denies: Chest pain, Dyspnea on exertion Endocrine: Denies: Fatigue, Heat or cold intolerance Gastrointestinal: Denies: Abdominal pain, Nausea, Vomiting Genitourinary: Denies: Incontinence, Retention Musculoskeletal: Denies: Arthralgia, Back pain Skin: Denies: Bruising, Change in color Neurological: Denies: Abnormal gait, Confusion, Headache, Seizure Psychiatric: Denies: Anxiety Hematological/Lymphatic: Denies: Anemia, Blood Clots Past Medical History - SOCIAL HISTORY Smoking Status: Never smoker Alcohol Use: None Drug Use: None - RESPIRATORY Hx Respiratory Disorders: No Comment:: denies any airway problems - CARDIOVASCULAR Hx Cardio Disorders: Yes Hx Deep Vein Thrombosis: Yes (had blood clot following hip surgery, blood clot to knee) Comment:: has an enlarged heart, no problems - NEURO Hx Neuro Disorders: Yes Hx Dizziness: Yes (occassionally) Hx Neuropathy: Yes (occassionally) Hx Seizures: Yes (as a child x1, no problems since) - GI Hx GI Disorders: Yes Hx Hiatal Hernia: Yes Hx Wt Loss/Wt Gain: Yes (58 lbs in 10 months) Comment:: dyspahgia/stricture, 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 - Hx Genitourinary Disorders: No Comment:: inc of urine at times - ENDOCRINE Hx Endocrine Disorders: Yes Hx Diabetes: Yes (on rx) Hx Thyroid Disease: Yes Comment:: states she isn't sure but is on medication for both - MUSCULOSKELETAL Hx Musculoskeletal Disorders: Yes Hx Arthritis: Yes (hands) Comment:: carpal tunnel bilateral - PSYCH Hx Psych Problems: No - HEMATOLOGY/ONCOLOGY Hx Hematology/Oncology Disorders: Yes Hx Blood Transfusions: No (denies) Family Medical History Any Significant Family History?: Yes Hx Cancer: Brother/Sister *Cancer Comment: sister-"urinary cancer" Hx Diabetes: Mother Hx Heart Disease: Father, Mother Hx HTN: Mother, Brother/Sister *HTN Comment: sister Hx Resp Disorders: Father, Grandparents Physical Exam - General General Appearance: Alert, Cooperative, Mild distress, Other (AO x 2 on examination, believes it is currently 2018.) Limitations: Altered mental status - Head Head exam: Atraumatic, Normocephalic, Normal inspection Head exam detail: negative: Abrasion, Contusion, Santos's sign, General tenderness, Hematoma, Laceration - Eye Eye exam: Normal appearance. negative: Conjunctival injection, Periorbital swelling, Periorbital tenderness, Scleral icterus - ENT Ear exam: negative: Auricular hematoma, Auricular trauma Nasal Exam: negative: Active bleeding, Discharge, Dried blood, Foreign body Mouth exam: negative: Drooling, Laceration, Muffled voice, Tongue elevation - Neck Neck exam: Normal inspection. negative: Meningismus, Tenderness - Respiratory Respiratory exam: Normal lung sounds bilaterally. negative: Rales, Respiratory distress, Rhonchi, Stridor - Cardiovascular Cardiovascular Exam: Regular rate, Normal rhythm, Normal heart sounds - GI/Abdominal GI/Abdominal exam: Soft. negative: Rebound, Rigid, Tenderness - Rectal Rectal exam: Deferred - exam: Deferred - Extremities Extremities exam: Normal inspection. negative: Pedal edema, Tenderness - Back Back exam: Denies: CVA tenderness (R), CVA tenderness (L) - Neurological Neurological exam: Alert, Other (No new focal deficits on exmaination, chronic disability of the LLE) - Psychiatric Psychiatric exam: Normal affect, Normal mood - Skin Skin exam: Normal color. negative: Abrasion Type of lesion: negative: abrasion Course Vital Signs 11/06/19 22:23 Temperature 97.7 F Pulse Rate [ 88 Left] Respiratory 20 Rate Blood Pressure 153/85 [Right Arm] Pulse Ox 98 - Reevaluation(s) Reevaluation #1: 11/06/19 22:58 EKG: NSR 88 LAD, normal intervals No acute ST-T wave changes present. Reevaluation #2: 11/06/19 23:22 Laboratory studies were reviewed and appear grossly unremarkable for an acute process. Patient is back from CT imaging, imaging was personally reviewed and no acute process is appreciated. Reevaluation #3: 11/06/19 23:26 CT Brain: No acute process Patient and her family members were updated on all results, will admit for possible medication overdose resulting in mental status changes. Patient and her family members are in agreement with the plan of care as discussed. Reevaluation #4: 11/06/19 23:38 While discussing results with family, patient had a witnessed tonic-clonic seizure lasting approximately 1 minute. Ativan 1 mg ordered to prevent recurrence. Will initiate transfer for neurology consultation. Reevaluation #5: 11/06/19 23:48 Case was discussed with Dr. Elmore, will accept the patient for transfer and further evaluation. Medical Decision Making - Lab Data Result diagrams: 11/06/19 22:37 11/06/19 22:37 Disposition Disposition: Transfer Clinical Impression: Generalized tonic-clonic seizure Change in mental status Qualifiers: Altered mental status type: disorientation Qualified Code(s): R41.0 - Disorientation, unspecified Disposition: Acute Care Hospital Transfer Transfer To: [facility] Reason For Transfer: Change in mental status Accepting Physician: Catarina Time Discussed w/Accepting Physician: 23:41 Condition: (2) Stable Forms: Patient Portal Access Time of Disposition: 23:41 Quality - Quality Measures Quality Measures: N/A - Blood Pressure Screening Does Patient Have Any of the Following: No Blood Pressure Classification: Pre-Hypertensive BP Reading Systolic Measurement: 153 Diastolic Measurement: 85 Screening for High Blood Pressure: < Pre-Hypertensive BP, F/U Documented > [G8950] Pre-Hypertensive Follow-up Interventions: Referral to alternative/primary care provider.
[2019-11-06 22:47] LABS: ABSOLUTE NEUTROPHIL COUNT 2.83; BASO % 0.2 % (0-6); EOS % 5.5 % (0-6); GRAN % 48.9 % (47-80); HEMATOCRIT 45.3 % (35.0-47.0); HEMOGLOBIN 14.5 gm/dl (11.6-16.0); LYMPH % 34.9 % (16-45); MEAN CELL VOLUME 88.6 fl (81-97); MEAN CORPUSCULAR HEMOGLOBIN 28.4 pg (27-33); MEAN PLATELET VOLUME 9.5 fl (7.4-10.4); MONO % 10.5 % (0-9); PLATELET COUNT 216 K/uL (130-400); RED BLOOD COUNT 5.11 M/uL (3.80-5.40); RED CELL DISTRIBUTION WIDTH 13.9 % (11.5-14.5); WHITE BLOOD COUNT W/O DIFF 5.8 K/uL (4.2-12.2)
[2019-11-06 22:55] LABS: URINE APPEARANCE CLEAR; URINE BILIRUBIN NEGATIVE (NEGATIVE); URINE BLOOD NEGATIVE (NEGATIVE); URINE COLOR YELLOW; URINE GLUCOSE (UA) NEGATIVE (NEGATIVE); URINE KETONE NEGATIVE (NEGATIVE); URINE LEUKOCYTE ESTERASE NEGATIVE (NEGATIVE); URINE NITRITE NEGATIVE (NEGATIVE); URINE PROTEIN NEGATIVE (NEGATIVE); URINE UROBILINOGEN 0.2 E.U./dL (0.20 - 1.00)
[2019-11-06 22:59] LABS: BLOOD UREA NITROGEN 12 mg/dL (8-23); CREATININE 0.9 mg/dL (0.5-0.9); EST GLOMERULAR FILTRATION RATE > 60 mL/min
[2019-11-06 23:00] LABS: TOTAL PROTEIN 6.8 g/dL (6.6-8.7)
[2019-11-06 23:02] LABS: GLUCOSE,RANDOM 138 mg/dL (74-109)
[2019-11-06 23:03] LABS: AMPHETAMINE SCREEN URINE NOT DETECTED; BARBITURATE SCREEN URINE NOT DETECTED; BENZODIAZEPINE SCREEN URINE NOT DETECTED; COCAINE SCREEN URINE NOT DETECTED; METHADONE SCREEN URINE NOT DETECTED; METHAMPHETAMINE SCREEN NOT DETECTED; OPIATE SCREEN URINE DETECTED; OXYCODONE SCREEN URINE NOT DETECTED; PHENCYCLIDINE SCREEN URINE NOT DETECTED; PROPOXYPHENE SCREEN URINE NOT DETECTED; THC SCREEN URINE NOT DETECTED; TRICYCLIC ANTIDEPRESSANT SCRN NOT DETECTED
[2019-11-06 23:05] LABS: ALB/GLOB RATIO 1.4 (1.1-1.8); ALKALINE PHOSPHATASE 82 U/L (35-104); ALT/SGPT 27 U/L (<33); AMMONIA 27 umol/L (11.0-51.0); AST/SGOT 37 U/L (10.0-35.0)
[2019-11-06 23:07] LABS: ACETAMINOPHEN < 5.0 ug/mL (10.0-30.0); SALICYLATE < 0.3 mg/dL (2.8-20)
[2019-11-06 23:15] LABS: THYROID STIMULATING HORMONE 3.98 uIU/mL (0.270-4.20)
--- NOTE | 2019-11-06 23:23 | CT SCAN REPORT ---
EXAMINATION: CT Head without IV Contrast EXAM DATE: 11/06/2019 11:20 PM TECHNIQUE: Standard protocol CT images of the head were obtained without intravenous contrast. Ocasio l and sagittal reconstructed images were created. INDICATION: confusion COMPARISON: None HAND DOMINANCE: Unknown. ENCOUNTER: Not applicable FINDINGS: 1. There is no intracranial mass, midline shift, extraaxial fluid collection or hemorrhage. 2. The ventricles, sulci and cisterns are normal. 3. There are no suspicious area of altered attenuation. 4. There is no fracture. 5. The visualized aspects of the orbits, paranasal sinuses, and mastoid air cells are normal. IMPRESSION: No evidence of acute intracranial abnormalities. Dictated by: Liliana George MD on 11/06/2019 11:20 PM. .
[2019-11-06] MEDS: LORAZEPAM 2 MG/ML VIAL IV ONE (23:51)
== END 2019-11-07 00:34 | disposition short-term general hospital (02) ==
LOC: ER 22:15
DX: G40.409 Other generalized epilepsy and epileptic syndromes, not intractable, without status epilepticus (principal); R41.0 Disorientation, unspecified; E11.9 Type 2 diabetes mellitus without complications
CPT/HCPCS: 70450; 80053; 80305; 80329; 81003; 82140; 83605; 84443; 84484; 85025; 93005; 93010; 96374; 99285